=== PATIENT | female | born 1970 | race Two or more races ===

== ENCOUNTER 2018-08-14 17:29 | Emergency (ER) | payer OTHER ==
[2018-08-14] MEDS ORDERED: Butalb/Acetamin/Caff TAB* 1 TAB PO ONE (18:19)
--- NOTE | 2018-08-14 18:27 | ED ---
Headache - HPI Summary HPI Summary: This patient is a 48 year old F presenting to ED with a chief complaint of acute on chronic migraine headache since today. Patient is accompanied by son, who provides translation. Patient is here visited for [facility] and after being out in the sun all day, experienced a migraine. She took Advil at 1200 which helped a little, but GEORGE has returned about an hour ago. The patient rates the pain 8/10 in severity during the day but 4.5/10 in the room. Symptoms aggravated by nothing. Symptoms alleviated slightly by Advil. Typically for migraines at ER, she is treated by IV as she is usually vomiting. She also takes Lipitor. Patient denies nausea, photophobia, sensitivity to sound, CP, SOB , fever. PMHx of migraines, GERD, HLD, but she does not take medication for migraines. FHx of DM but no HTN, HLD. PSHx of kidney stones. Patient does not drink alcohol, use substances, or smoke tobacco. - History Of Current Complaint Chief Complaint: EDHeadache Stated Complaint: "MIGRAINE PER SON" Time Seen by Provider: 08/14/18 18:07 Hx Obtained From: Patient, Family/Industrial [employer]ro[employer] Onset/Duration: Gradual Onset, Started hours ago - Today, Still Present Initially Headache Was: Initial Pain Scale(0-10)= - 8 Currently Pain Is: Current Pain Scale(0-10)= - 4 Timing: Constant Character: Typical Headache, Migraine Aggravating Factor: Nothing Allevating Factors: Medication - Advil alleviates slightly Associated Signs And Symptoms: Negative - nausea, photophobia, sensitivity to sound, CP, SOB, fever Related History: Similar Episode/DX As: - Typical migraine - Allergies/Home Medications Allergies/Adverse Reactions: Allergies Allergy/AdvReac Type Severity Reaction Status Date / Time No Known Allergies Allergy Verified 08/14/18 17:42 Home Medications: Home Medications Ibuprofen [Advil] 400 mg PO Q6H PRN 08/14/18 [History Confirmed 08/14/18] PMH/Surg Hx/FS Hx/Imm Hx Endocrine/Hematology History: Denies: Hx Diabetes Cardiovascular History: Reports: Hx Hypercholesterolemia Denies: Hx Hypertension GI History: Reports: Hx Gastroesophageal Reflux Disease Neurological History: Reports: Hx Migraine - Surgical History Surgery Procedure, Year, and Place: Kidney stone Infectious Disease History: No Infectious Disease History: Denies: Traveled Outside the [place] in Last 30 Days - Family History Known Family History: Positive: Diabetes Negative: Hypertension - Social History Alcohol Use: None Hx Substance Use: No Substance Use Type: Reports: None Hx Tobacco Use: No Smoking Status (MU): Never Smoked Tobacco Review of Systems Negative: Fever Negative: Chest Pain Negative: Shortness Of Breath Negative: Vomiting, Nausea Neurological: Negative - Photophobia, sensitivity to sound Positive: Headache All Other Systems Reviewed And Are Negative: Yes Physical Exam - Summary Physical Exam Summary: Appearance: Well appearing, no pain distress Skin: warm, dry, reflects adequate perfusion Head/face: normal Eyes: EOMI, TARA ENT: normal Neck: supple, non-tender Respiratory: CTA, breath sounds present Cardiovascular: RRR, pulses symmetrical Abdomen: non-tender, soft Musculoskeletal: normal, strength/ROM intact Neuro: normal, sensory motor intact, A&Ox3 Triage Information Reviewed: Yes Vital Signs On Initial Exam: Initial Vitals Temp Pulse Resp BP Pulse Ox 98.9 F 83 16 144/95 98 08/14/18 17:37 08/14/18 17:37 08/14/18 17:37 08/14/18 17:37 08/14/18 17:37 Vital Signs Reviewed: Yes Diagnostics - Vital Signs Vital Signs Temp Pulse Resp BP Pulse Ox 08/14/18 17:37 98.9 F 83 16 144/95 98 - Laboratory Lab Statement: Any lab studies that have been ordered have been reviewed, and results considered in the medical decision making process. Re-Evaluation - Re-Evaluation First Eval Re-Evaluation Time: 19:26 Comment: Discussed results with patient. Patient will be discharged home with dx of migraine headaches. Patient understands and agrees with this plan. Headache Course/Dx - Course Course Of Treatment: This patient is a 48 year old F presenting to ED with a chief complaint of acute on chronic migraine headache after being in the sun all day. In the ED course, patient received Fioricet. She reports feeling better. She is hemodynamically stable and safe for discharge. Strict return precautions given and she will otherwise follow up with her PCP. - Diagnoses Differential Diagnosis/HQI/PQRI: Migraine, Tension Headache Provider Diagnoses: Migraine headache Discharge - Sign-Out/Discharge Documenting (check all that apply): Patient Departure - Discharge Patient Received Moderate/Deep Sedation with Procedure: No - Discharge Plan Condition: Stable Disposition: HOME Patient Education Materials: Migraine Headache (ED) Referrals: [facility] [place] [facility]ERR[facility] [Outside] - 3 Days Additional Instructions: Follow-up with your primary care physician in 3 days. RETURN TO THE ER FOR WORSENING OR CHANGING SYMPTOMS. - Billing Disposition and Condition Condition: STABLE Disposition: Home - Attestation Statements Document Initiated by Scribe: Yes Documenting Scribe: Yayo Craig Provider For Whom Scribe is Documenting (Include Credential): Titus Costa MD Scribe Attestation: Yayo Rivas, scribed for Titus Costa MD on 08/14/18 at 1945. Scribe Documentation Reviewed: Yes Provider Attestation: The documentation as recorded by the Yayo natarajan accurately reflects the service I personally performed and the decisions made by me, Titus Costa MD Status of Scribe Document: Viewed
[2018-08-14 19:23] VITALS: BP 139/84
== END 2018-08-14 19:30 | disposition home or self-care (01) ==
LOC: ED 17:29
DX: G43.909 Migraine, unspecified, not intractable, without status migrainosus (principal); E78.00 Pure hypercholesterolemia, unspecified
CPT/HCPCS: 99282; A9270-GY